=== PATIENT | female | born 1940 | race Native Hawaiian/Other Pacific Islander ===

== ENCOUNTER 2017-01-01 12:52 | Outpatient (CLI) | payer OTHER ==
[~2017-01-01 12:52] MED LIST: AMIO200T14 PO; ASPIRIN325 M2 PO; CARTIA XT120 MG/24 PO; CELEBREX200 MG PO; CEPHALEXIN500 MG PO; DILTIAZEM240 M1 PO; DULO60CA2 OR; DULOXETINE HCL30 MG PO; FLUOXETINE20 MG PO; FORTAMET500 MG PO; GABA300C2 PO; GLIP10TA55 PO; LEVEMIR FLEXPEN SC; LIPITOR20 MG PO; LISI10TA11 PO; LUMIGAN0.01 % OP; METF500T PO; MUPIROCIN2 % EX; NOVOLOG SC; OMEGA 31000 MG OR; PACERONE200 MG OR; PROZAC10 MG PO; ROSU10TA PO; TRAZ100T OR; TRAZ100T PO; VESICARE10 MG PO; WARF10TA5 PO; WARF7.5T5 PO
[2017-01-01] MEDS ORDERED: ONDA4TAB3 PO (13:21)
[2017-01-01] MEDS ORDERED: COUMADIN6 MG PO (13:22)
[2017-01-01] MEDS ORDERED: TRAM50TA PO (13:23)
== END 2017-01-01 12:55 | disposition short-term general hospital (02) ==
LOC: AMB 12:52
DX: M62.81 Muscle weakness (generalized) (principal); R29.810 Facial weakness; R47.81 Slurred speech
CPT/HCPCS: A0425; A0427

== ENCOUNTER 2017-01-01 12:57 | Emergency (ER) | payer OTHER ==
[~2017-01-01] VITALS: Ht 175.3 cm; Wt 106.6 kg
[2017-01-01 13:17] LABS: PLATELET COUNT 244 K/uL (152-353)
[2017-01-01] MEDS ORDERED: ONDA4TAB3 PO (13:21)
[2017-01-01] MEDS ORDERED: COUMADIN6 MG PO (13:22)
[2017-01-01] MEDS ORDERED: TRAM50TA PO (13:23)
[2017-01-01 13:27] LABS: POTASSIUM 3.8 mmol/L (3.6-5.2)
[2017-01-01 15:36] VITALS: BP 149/59; TEMP 98.3
== END 2017-01-01 15:55 | disposition short-term general hospital (02) ==
LOC: ED 12:57
DX: G45.8 Other transient cerebral ischemic attacks and related syndromes (principal); I48.91 Unspecified atrial fibrillation; I10 Essential (primary) hypertension
CPT/HCPCS: 36415; 80053; 85027; 85610; 93005; 96374; 99284; J2405

== ENCOUNTER 2017-01-01 16:05 | Outpatient (CLI) | payer OTHER ==
[~2017-01-01 16:05] MED LIST changes: +COUMADIN6 MG PO; +ONDA4TAB3 PO; +TRAM50TA PO
== END 2017-01-01 16:36 | disposition short-term general hospital (02) ==
LOC: AMB 16:05
DX: G45.8 Other transient cerebral ischemic attacks and related syndromes (principal); I48.91 Unspecified atrial fibrillation; I10 Essential (primary) hypertension
CPT/HCPCS: A0425; A0427

== ENCOUNTER 2017-01-06 15:24 | Inpatient (IN) | payer OTHER ==
[~2017-01-06] VITALS: Ht 175.3 cm; Wt 117.2 kg
[2017-01-06 15:45] VITALS: BP 156/53; TEMP 98.5; Ht 175.3 cm; Wt 117.2 kg
[2017-01-06 20:00] VITALS: BP 112/46; TEMP 97.7
[2017-01-07] MEDS ORDERED: AMLO2.5T PO (00:28)
[2017-01-07] MEDS ORDERED: PEPCID20 MG OR (00:29)
[2017-01-07] MEDS ORDERED: HYDR25TA60 PO (00:30)
[2017-01-07] MEDS ORDERED: HYDRALAZINE50 MG PO (00:31)
[2017-01-07] MEDS ORDERED: ASPIRIN 8181 MG PO (00:33)
[2017-01-07] MEDS ORDERED: TRAZ50TA36 PO (00:34)
[2017-01-07] MEDS ORDERED: PROBIOTI1 OR (00:36)
[2017-01-07 08:00] VITALS: BP 130/50; TEMP 98
[2017-01-07 20:13] VITALS: BP 136/71; TEMP 98.1
[2017-01-08 07:59] VITALS: BP 196/55; TEMP 97.8
[2017-01-08 20:29] VITALS: BP 125/53; TEMP 98.9
[2017-01-09 08:00] VITALS: BP 132/60; TEMP 98
[2017-01-09 20:00] VITALS: BP 122/59; TEMP 98
[2017-01-10 08:00] VITALS: BP 155/60; TEMP 98.5
[2017-01-10 20:09] VITALS: BP 116/59; TEMP 98
[2017-01-11 08:00] VITALS: BP 171/51; TEMP 98.1
[2017-01-11 20:00] VITALS: BP 132/57; TEMP 97.8
[2017-01-12 05:56] LABS: PLATELET COUNT 207 K/uL (152-353)
[2017-01-12 06:15] LABS: POTASSIUM 4.5 mmol/L (3.6-5.2)
[2017-01-12 06:40] LABS: PARTIAL THROMBOPLASTIN TIME 29.9 SECONDS (24.5-33.6)
[2017-01-12 08:00] VITALS: BP 103/55; TEMP 98
[2017-01-12 20:36] VITALS: BP 161/65; TEMP 98.3
[2017-01-13 08:00] VITALS: BP 156/62; TEMP 97.8
[2017-01-13 20:20] VITALS: BP 120/50; TEMP 98
[2017-01-14 20:00] VITALS: BP 152/54; TEMP 98.5
[2017-01-15 08:00] VITALS: BP 149/81; TEMP 98.1
[2017-01-15 20:00] VITALS: BP 152/48; TEMP 98.1
[2017-01-16 20:00] VITALS: BP 157/54; TEMP 97.9
[2017-01-17 20:33] VITALS: BP 189/79; TEMP 98.3
[2017-01-18 08:00] VITALS: BP 148/62; TEMP 97.8
[2017-01-18 20:00] VITALS: BP 147/51; TEMP 98.7
[2017-01-19 04:28] LABS: PLATELET COUNT 226 K/uL (152-353)
[2017-01-19 04:47] LABS: POTASSIUM 3.5 mmol/L (3.6-5.2)
[2017-01-19 04:48] LABS: PARTIAL THROMBOPLASTIN TIME 29.8 SECONDS (24.5-33.6)
[2017-01-19 08:00] VITALS: BP 170/56; TEMP 97.8
[2017-01-19 20:00] VITALS: BP 136/70; TEMP 98.5
[2017-01-20 08:00] VITALS: BP 130/64; TEMP 98
[2017-01-20 20:29] VITALS: BP 128/57; TEMP 98.6
[2017-01-21 08:00] VITALS: BP 126/91; TEMP 97.5
[2017-01-22 08:00] VITALS: BP 155/55; TEMP 98.1
[2017-01-22 20:00] VITALS: BP 151/39; BP 151/59; TEMP 98.7
[2017-01-23 20:00] VITALS: BP 117/49; TEMP 98
[2017-01-24 08:50] VITALS: BP 147/52; TEMP 98
[2017-01-24 20:01] VITALS: BP 149/52; TEMP 98.5
[2017-01-25 20:00] VITALS: BP 151/61; TEMP 98
[2017-01-26 07:01] LABS: PLATELET COUNT 228 K/uL (152-353)
[2017-01-26 07:39] LABS: PARTIAL THROMBOPLASTIN TIME 34.3 SECONDS (24.5-33.6)
[2017-01-26 07:50] LABS: POTASSIUM 3.9 mmol/L (3.6-5.2)
[2017-01-26 08:00] VITALS: BP 152/70; TEMP 97.9
[2017-01-26 20:00] VITALS: BP 138/88; TEMP 97.9
[2017-01-27 08:00] VITALS: BP 141/50; TEMP 98
== END 2017-01-27 13:00 | disposition home or self-care (01) | DRG 556 ==
LOC: MED/SURG 15:24
PROVIDERS: Family Medicine; ADMIT Emergency Medicine
DX: M62.81 Muscle weakness (generalized) (principal); I69.254 Hemiplegia and hemiparesis following other nontraumatic intracranial hemorrhage affecting left non-dominant side; I48.91 Unspecified atrial fibrillation; I25.10 Atherosclerotic heart disease of native coronary artery without angina pectoris; E11.9 Type 2 diabetes mellitus without complications; Z79.01 Long term (current) use of anticoagulants
CPT/HCPCS: 36415; 80053; 82948; 84550; 85027; 85610; 85730; L4398

== ENCOUNTER 2017-02-10 14:37 | Outpatient (CLI) | payer OTHER ==
[~2017-02-10 14:37] MED LIST changes: +AMLO2.5T PO; +ASPIRIN 8181 MG PO; +HYDR25TA60 PO; +HYDRALAZINE50 MG PO; +PEPCID20 MG OR; +PROBIOTI1 OR; +TRAZ50TA36 PO
== END 2017-02-10 14:49 | disposition short-term general hospital (02) ==
LOC: AMB 14:37
DX: R53.1 Weakness (principal); I69.854 Hemiplegia and hemiparesis following other cerebrovascular disease affecting left non-dominant side
CPT/HCPCS: A0425; A0427